=== PATIENT | female | born 1975 | race Caucasian/White ===

== ENCOUNTER 2019-02-18 11:14 | Emergency (ER) | payer SELFPAY ==
[~2019-02-18] VITALS: Ht 152.4 cm; Wt 79.5 kg
[~2019-02-18 11:14] MED LIST: IRON325 M1 PO; K-DUR/KLOR-CON10 MEQ PO; LASIX 20 MG TAB20 MG PO; WELLBUTRIN SR150 MG PO
[2019-02-18 12:02] VITALS: BP 113/70
== END 2019-02-18 12:00 | disposition home or self-care (01) | DRG 392 ==
LOC: ED 11:14
DX: R13.10 Dysphagia, unspecified (principal); R43.9 Unspecified disturbances of smell and taste